=== PATIENT | female | born 1980 | race Caucasian/White ===

== ENCOUNTER 2018-01-13 10:33 | Emergency (ER) | payer MEDICAID, OTHER ==
[~2018-01-13] VITALS: Ht 172.7 cm; Wt 103.9 kg
[2018-01-13 10:42] VITALS: BP 117/69; PULSE 81; RESP 18; TEMP 99.4; O2SAT 98
--- NOTE | 2018-01-13 11:28 | PD ---
HPI Chief Complaint: ENT Complaint Time Seen by Provider: 11:11 Travel History International Travel<30 days: No Contact w/Intl Traveler<30days: No Traveled to known affect area: No History of Present Illness HPI 37-year-old female presents emergency department for evaluation of a sore throat , nonproductive cough, and bilateral ear pain that started Thursday. Patient states that over the last couple days she has developed chills and one episode of subjective fever since she decided to come to the emergency department for evaluation.. She denies any chest pain or shortness of breath. She denies any exposures to sick contacts. She has tried Emergen-C and vixr-xpn-thtiied cough drops without significant relief. She denies chronic medical issues and medication use. She has no other complaints today. PFSH Past Medical History Medical History: Denies Significant Hx Diminished Hearing: No Influenza Vaccination: No ?: Not LMP: 01/07/18 Ectopic : Yes Past Surgical History Abdominal Surgery: Yes Gynecologic Surgery: Yes (EXPLORATORY LAP FOR ECTOPIC PREG) Social History Alcohol Use: Yes (1X WEEKLY) Tobacco Use: Yes (1 PPW) Substance Use: No Allergies-Medications (Allergen,Severity, Reaction): Coded Allergies: No Known Allergies (Verified Adverse Reaction, Unknown, 01/13/18) Reported Meds & Prescriptions Reported Meds & Active Scripts Active Prednisone 10 Mg Tab 10 Mg PO DAILY 7 Days Review of Systems Except as stated in HPI: all other systems reviewed are Neg Physical Exam Narrative GENERAL: Well-nourished, well-developed patient. SKIN: Focused skin assessment warm/dry. HEAD: Normocephalic. EYES: No scleral icterus. No injection or drainage. NECK: Supple, trachea midline. No JVD or lymphadenopathy. Mild pharyngeal injection without tonsillar hypertrophy or exudate CARDIOVASCULAR: Regular rate and rhythm without murmurs, gallops, or rubs. RESPIRATORY: Breath sounds equal bilaterally. No accessory muscle use. GASTROINTESTINAL: Abdomen soft, non-tender, nondistended. No CVA tenderness MUSCULOSKELETAL: No cyanosis, or edema. Homans sign negative bilaterally BACK: Nontender without obvious deformity. No CVA tenderness. Data Data Last Documented VS Vital Signs Date Time Temp Pulse Resp B/P (MAP) Pulse Ox O2 Delivery O2 Flow Rate FiO2 01/13/18 10:42 99.4 81 18 117/69 (85) 98 Orders Orders Ed Discharge Order (01/13/18 11:28) [facility] Medical Decision Making Medical Screen Exam Complete: Yes Emergency Medical Condition: Yes Differential Diagnosis Viral syndrome, allergic rhinitis, postnasal drip Narrative Course 37-year-old female presents emergency department for evaluation of a sore throat , nonproductive cough, and bilateral ear pain that started Thursday. Patient states that over the last couple days she has developed chills and one episode of subjective fever. She denies any chest pain or shortness of breath. She denies any exposures to sick contacts. She is tried emergency and over-the- counter cough drops without significant relief. She denies chronic medical issues and medication use. Vital signs are stable. Physical exam findings consistent with postnasal drip with mild pharyngeal injection, mild cobblestoning of the posterior pharynx. Lungs clear to auscultation bilaterally without wheezing. History and physical are consistent for allergic rhinitis postnasal drip. Patient may be developing a viral syndrome as well however, we will treat this conservatively. Prednisone may reduce her symptoms as I believe her symptoms are from allergies. Cough and fever instructions given. Patient advised to follow-up with her primary care physician for further treatment and evaluation. Return to the emergency department for worsening or persistent symptoms. Diagnosis Primary Impression: Allergic rhinitis Qualified Codes: J30.9 - Allergic rhinitis, unspecified Additional Impression: Post-nasal drip Referrals: [facility] Additional Instructions: You may use a drop of honey and lemon in a cup of warm water to soothe your cough. (If greater than 1 year old) Ensure good hydration and a nutritious diet. Note that viral infections may last for several weeks, if this is a viral infection. Follow up with your primary physician within 2-3 days. Return to the ED for worsening or persistent symptoms. I recommend you try [id number] Zyrtec, Claritin or Fariha for possible allergy symptoms. You may use generics. Scripts Prednisone (Prednisone) 10 Mg Tab 10 MG PO DAILY for 7 Days, #7 TAB 0 Refills Prov: Randell Sharpe MD 01/13/18 Disposition: 01 DISCHARGE HOME Condition: Stable Marissa Cross Jan 13, 2018 11:27
[2018-01-13] MEDS ORDERED: PRED10 PO (11:29)
== END 2018-01-13 11:52 | disposition home or self-care (01) ==
LOC: PHEFT 10:33
DX: J30.9 Allergic rhinitis, unspecified (principal); H92.03 Otalgia, bilateral; F17.200 Nicotine dependence, unspecified, uncomplicated; Z79.899 Other long term (current) drug therapy
CPT/HCPCS: 99283